=== PATIENT | male | born 1970 ===

== ENCOUNTER 2017-10-10 21:42 | Emergency (ER) | payer OTHER ==
[2017-10-10 21:53] VITALS: BP 141/82; PULSE 110; RESP 16; TEMP 98.2; O2SAT 95
[2017-10-10] MEDS ORDERED: Naproxen 500 MG TAB PO ONE ×2 (22:44→22:55)
[2017-10-10] MEDS ORDERED: Tdap Vaccine 0.5 ml Vial (10-64 yrs) IM ONE ×2 (22:44→22:55)
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
[2017-10-10] MEDS ORDERED: Bacitracin 500 Units/gm Oint Foilpak UD TOP STA (23:57)
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
--- NOTE | 2017-10-11 09:06 | RAD ---
PROCEDURE: Cervical Spine Radiographs. HISTORY: Pain. COMPARISON: None. FINDINGS: BONES: Alignment maintained. No fracture. Dens Intact. Anterior endplate osteophytic changes at C5-6 DISC SPACES: Focal C5-6 disc space narrowing. SOFT TISSUES: Normal. No prevertebral soft tissue swelling. OTHER FINDINGS: None. IMPRESSION: No acute fracture. Focal C5-6 degenerative changes.
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
--- NOTE | 2017-10-11 09:07 | RAD ---
PROCEDURE: Left Knee Radiographs. HISTORY: Pain. COMPARISON: None. FINDINGS: BONES: No acute fracture. JOINTS: Unremarkable. JOINT EFFUSION: Infiltration of Hoffa's fat pad. OTHER FINDINGS: None. IMPRESSION: No demonstrated fracture or dislocation.
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
== END 2017-10-11 00:16 | disposition home or self-care (01) ==
LOC: H.ER 21:42
DX: S93.401A Sprain of unspecified ligament of right ankle, initial encounter (principal); S13.4XXA Sprain of ligaments of cervical spine, initial encounter; S90.31XA Contusion of right foot, initial encounter; S80.01XA Contusion of right knee, initial encounter; V03.10XA Pedestrian on foot injured in collision with car, pick-up truck or van in traffic accident, initial encounter; Y92.410 Unspecified street and highway as the place of occurrence of the external cause